=== PATIENT | female | born 1970 | race Caucasian/White ===

== ENCOUNTER 2016-06-02 08:04 | Emergency (ER) | payer BC ==
[2016-06-02 08:21] VITALS: BP 153/73
--- NOTE | 2016-06-02 09:00 | UC ---
Eye Complaint HPI - HPI Summary HPI Summary: awoke today with R eye crusty and drainage. States as day continues- body aches and congestion. Concerned for flu. Wants flu testing. [ End ] - History of Current Complaint Chief Complaint: UCRespiratory Stated Complaint: EYE COMPLAINT,COUGH Time Seen by Provider: 06/02/16 08:23 Hx Obtained From: Patient Hx Last Menstrual Period: 05/08/16 ?: No Onset/Duration: Sudden Onset Aggravating Factor(s): Nothing Alleviating Factor(s): Nothing - Allergies/Home Medications Allergies/Adverse Reactions: Allergies Allergy/AdvReac Type Severity Reaction Status Date / Time Azithromycin [From Zithromax] Allergy Rash Verified 06/02/16 08:14 Levofloxacin [From Levaquin] Allergy See Comment Verified 06/02/16 08:14 Penicillins Allergy Rash Verified 06/02/16 08:14 Sulfa Antibiotics Allergy Rash Verified 06/02/16 08:14 Home Medications: Home Medications Ferrous Fumarate [Iron] 18 mg PO BID 06/02/16 [History Confirmed 06/02/16] Omeprazole CAP* [Prilosec CAP* 20 MG] 20 mg PO DAILY 06/02/16 [History Confirmed 06/02/16] Progesterone CAP (NF) [Prometrium (NF)] 100 mg PO DAILY 06/02/16 [History Confirmed 06/02/16] metFORMIN* [Glucophage*] 1,000 mg PO DAILY 06/02/16 [History Confirmed 06/02/16] PMH/Surg Hx/FS Hx/Imm Hx Previously Healthy: Yes Endocrine History Of: Reports: Diabetes Cardiovascular History Of: Reports: Hypertension - no meds GI/ History Of: Denies: Ulcer - Surgical History Surgical History: Yes Surgery Procedure, Year, and Place: appy. ablation. tubal ligation - Family History Known Family History: Positive: None - Social History Occupation: Employed Full-time Lives: With Family Alcohol Use: Occasionally Substance Use Type: None Smoking Status (MU): Never Smoked Tobacco - Immunization History Most Recent Influenza Vaccination: 2016 Review of Systems Constitutional: Fever, Chills, Fatigue Skin: Negative Eyes: Drainage, Eye Redness ENT: Negative Respiratory: Negative Cardiovascular: Negative Gastrointestinal: Negative Genitourinary: Negative Motor: Negative Neurovascular: Negative Musculoskeletal: Myalgia Neurological: Negative Psychological: Negative All Other Systems Reviewed And Are Negative: Yes Physical Exam Triage Information Reviewed: Yes Appearance: Well-Appearing, No Pain Distress, Well-Nourished Vital Signs: Initial Vital Signs Temp 98 F 06/02/16 08:17 Pulse 88 06/02/16 08:17 Resp 18 06/02/16 08:17 BP 153/73 06/02/16 08:17 Pulse Ox 100 06/02/16 08:17 Vital Signs Reviewed: Yes Eye Exam: Normal Eyes: Positive: Conjunctiva Inflamed - mild on right eye with minimal dried yellow discharge left eye . 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 Per pt the lovaquin allergy was actually a ACL tightness and no true allergy or tendon rupture. she has multiple allergy to medications. 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 no fevers at this time negative flu - Differential Dx/Diagnosis Differential Diagnosis/HQI/PQRI: Conjunctivitis, Uveitis Provider Diagnoses: Viral illness with conjunctivitis Discharge - Discharge Plan Condition: Good Disposition: HOME Prescriptions: Ofloxacin 0.3%(Ophth)(Nf) [Ocuflox OPTH 0.3%(NF)] 1 drop RIGHT EYE Q4HR #1 btl Patient Education Materials: Viral Syndrome (ED), Conjunctivitis (ED) Referrals: Christianne Hill [Primary Care Provider] - 3 Days
== END 2016-06-02 09:11 | disposition home or self-care (01) ==
LOC: UCCORT 08:04
DX: B30.9 Viral conjunctivitis, unspecified (principal); E11.9 Type 2 diabetes mellitus without complications; Z88.2 Allergy status to sulfonamides; Z88.0 Allergy status to penicillin
CPT/HCPCS: 87502; 99212; G0463